=== PATIENT | male | born 1990 | race Caucasian/White ===

== ENCOUNTER 2019-08-28 12:00 | Emergency (ER) | payer OTHER ==
[~2019-08-28] VITALS: Ht 182.9 cm; Wt 79.0 kg
[2019-08-28] MEDS ORDERED: NAPR-1193 PO (12:05)
[2019-08-28] MEDS ORDERED: TRAM50TA4 PO (12:05)
[2019-08-28] MEDS ORDERED: LIDOCAINE 5% TRANSDERMAL PATCH TD ONE (12:45)
[2019-08-28] MEDS ORDERED: KETOROLAC TROMETHAMINE 60 MG/2 ML VIAL IM ONE (12:45)
[2019-08-28 13:37] VITALS: BP 102/62
== END 2019-08-28 14:08 | disposition home or self-care (01) ==
LOC: EMS 12:08
DX: M54.5 Low back pain (principal); M54.6 Pain in thoracic spine; F17.210 Nicotine dependence, cigarettes, uncomplicated; F12.90 Cannabis use, unspecified, uncomplicated
CPT/HCPCS: 96372; 99283; J1885